=== PATIENT | female | born 1985 | race Caucasian/White ===

== ENCOUNTER 2016-08-21 08:51 | Emergency (ER) | payer OTHER ==
[~2016-08-21] VITALS: Ht 170.2 cm; Wt 90.7 kg
[2016-08-21 09:06] VITALS: BP 138/76
--- NOTE | 2016-08-21 09:24 | RAD ---
Left foot, 3 views, 08/21/2016: History: Left foot injury, pain No acute fracture or dislocation is identified. There is mild subcutaneous edema. IMPRESSION: No acute bony abnormality is detected.
--- NOTE | 2016-08-21 09:39 | PHYS DOC ---
Past Medical History Past Medical History: Other Additional Past Medical Histor: CHILDHOOD ASTHMA, SEASONAL ALLERGIES Past Surgical History: No Surgical History Alcohol Use: None Drug Use: None Adult General Chief Complaint Chief Complaint: FOOT INJURY PAIN [facility] HPI Patient is a 30 year old female resents to the emergency department stating that over the site at 5:30 she went to stand up not realizing that both of her feet were asleep. She states that she will hold her left foot and is having pain along the fifth metatarsal area. She denies any numbness or tingling in her feet. She is able to move her toes without difficulty. She stated last night she was able to ambulate on it. After she had been placing ice on it and keeping it elevated she has had increased pain and discomfort and was afraid to put weight on the foot area. Review of Systems Review of Systems Constitutional: Denies fever or chills [] Eyes: Denies change in visual acuity, redness, or eye pain [] HENT: Denies nasal congestion or sore throat [] Respiratory: Denies cough or shortness of breath [] Cardiovascular: No additional information not addressed in HPI [] GI: Denies abdominal pain, nausea, vomiting, bloody stools or diarrhea [] : Denies dysuria or hematuria [] Musculoskeletal: Denies back pain. Left foot pain Integument: Denies rash or skin lesions [] Neurologic: Denies headache, focal weakness or sensory changes [] Endocrine: Denies polyuria or polydipsia [] Allergies Allergies Allergies Coded Allergies Type Severity Reaction Last Updated Verified No Known Drug Allergies 08/21/16 No Physical Exam Physical Exam Constitutional: Well developed, well nourished, no acute distress, non-toxic appearance. [] HENT: Normocephalic, atraumatic, bilateral external ears normal, oropharynx moist, no oral exudates, nose normal. [] Eyes: PERRLA, EOMI, conjunctiva normal, no discharge. [] Neck: Normal range of motion, no tenderness, supple, no stridor. [] Cardiovascular:Heart rate regular rhythm, no murmur [] Lungs & Thorax: Bilateral breath sounds clear to auscultation [] Skin: Warm, dry, no erythema, no rash. [] Back: No tenderness Extremities: Left foot tenderness along the 5th metatarsal area, no cyanosis, no clubbing, ROM intact, no edema. Peripheral pulses 2+ cap refill brisk < 2 seconds. Cap refill brisk < 2 seconds. Patient with good sensation to left toes. No discoloration, no bruising and minimal swelling noted. Neurologic: Alert and oriented X 3, normal motor function, normal sensory function, no focal deficits noted. [] Psychologic: Affect normal, judgement normal, mood normal. [] Current Patient Data Vital Signs Vital Signs Date Time Temp Pulse Resp B/P (MAP) Pulse Ox O2 Delivery O2 Flow Rate FiO2 08/21/16 09:06 98.4 75 18 97 Room Air 98.4 EKG EKG [] Radiology/Procedures Radiology/Procedures [][facility] [address] [place] [address] IMAGING REPORT Signed PATIENT: EDGAR BELL ACCOUNT: [id number] : 1985 LOCATION: ER AGE: 30 SEX: F EXAM STATUS: PRE ER ORD. PHYSICIAN: SUSANNA BENTLEY APRN REASON: left foot pain and injury PROCEDURE: FOOT LEFT 3V Left foot, 3 views, 08/21/2016: History: Left foot injury, pain No acute fracture or dislocation is identified. There is mild subcutaneous edema. IMPRESSION: No acute bony abnormality is detected. DICTATED and SIGNED BY: JONES OTERO MD DATE: 08/21/16 0920 CC: SUSANNA BENTLEY APRN ~ Course & Med Decision Making Course & Med Decision Making Pertinent Labs and Imaging studies reviewed. (See chart for details) X-rays were negative for fractures. Patient was provided with x-ray results. Recommended chriss wrap and post op shoe. Recommended Aleve or Ibuprofen for pain and discomfort. Patient will be discharge home in stable condition. Signs and symptoms to return to the emergency department has been provided. Patient will be provided with orthopedic for followup. Patient agrees with discharge instructions, treatment regimen and followup recommendations. [] Dragon Disclaimer Dragon Disclaimer This electronic medical record was generated, in whole or in part, using a voice recognition dictation system. Departure Departure Impression: Primary Impression: Sprain of left foot Disposition: 01 HOME, SELF-CARE Condition: STABLE Referrals: MELANIA WALKER MD Patient Instructions: Foot Sprain-Brief, Hard-Soled Shoe Additional Instructions: X-rays were negative for fracture or any bony abnormality. Activity as tolerated Ibuprofen 800 mg every 8 hours OR Aleve as directed by manufacture. Take with food to prevent stomach upset. Wear the chriss wrap for the next 5-7 days and wear the post-op shoe for the next 7 -10 days Ice packs on 20 minutes and off 20 minutes several times a day Elevation as much as possible Followup with orthopedic in 1 week Return to emergency department as needed for signs and symptoms that become worse. SUSANNA BENTLEY PHOTOGRAPHIC PROCESS WORKER August 21, 2016 09:39
== END 2016-08-21 09:42 | disposition home or self-care (01) ==
LOC: ER 08:51
DX: S93.602A Unspecified sprain of left foot, initial encounter (principal); J45.909 Unspecified asthma, uncomplicated; X58.XXXA Exposure to other specified factors, initial encounter; Y93.89 Activity, other specified; Y92.89 Other specified places as the place of occurrence of the external cause; Y99.8 Other external cause status
CPT/HCPCS: 73630; 99284